=== PATIENT | female | born 1950 | race Two or more races ===

== ENCOUNTER → 2017-12-15 | Emergency (ER) | payer OTHER ==
[~2017-12-15] VITALS: Ht 165.1 cm; Wt 111.6 kg
[~2017-12-15] MED LIST: AMBIEN10 MG; ASA81 MG; AVALIDE 300-251 TAB; CLONAZEPAM1 MG; DICLOFENAC SODI50 MG PO; LIPITOR40 MG; LODINE300 MG; LOPRESSOR25 MG; NEURONTIN600 MG; NORFLEX100MG PO; PLAVIX75 MG; SEROQUEL25 MG; TUSSI PRES-B L120 M1 PO; VICODIN 5-3001 EACH; WELLBUTRIN XL300 MG; ZITHROMAX TRI-500 MG PO
== END | disposition home or self-care (01) ==
LOC: ER 15:27
DX: L20.9 Atopic dermatitis, unspecified (principal); R21 Rash and other nonspecific skin eruption

== ENCOUNTER 2018-10-11 12:10 | Emergency (ER) | payer OTHER ==
[~2018-10-11] VITALS: Ht 167.6 cm; Wt 115.2 kg
[2018-10-11] MEDS ORDERED: ALBUTEROL0.63 MG/3 IH (19:03)
== END 2018-10-11 19:08 | disposition home or self-care (01) ==
LOC: ER 12:10
DX: B34.9 Viral infection, unspecified (principal); J11.1 Influenza due to unidentified influenza virus with other respiratory manifestations

== ENCOUNTER 2019-08-18 11:07 | Emergency (ER) | payer OTHER ==
[~2019-08-18] VITALS: Ht 167.6 cm; Wt 115.2 kg
[~2019-08-18 11:07] MED LIST changes: +ALBUTEROL0.63 MG/3 IH
== END 2019-08-18 16:09 | disposition home or self-care (01) ==
LOC: ER 11:07
DX: J45.998 Other asthma (principal)

== ENCOUNTER 2019-09-06 15:49 | Emergency (ER) | payer OTHER ==
[~2019-09-06] VITALS: Ht 152.4 cm; Wt 131.5 kg
[2019-09-06] MEDS ORDERED: ZITHROMAX500 MG PO (17:33)
[2019-09-06] MEDS ORDERED: TUSNEL LIQUID178 ML PO (17:33)
== END 2019-09-06 17:42 | disposition home or self-care (01) ==
LOC: ER 15:49
DX: M94.0 Chondrocostal junction syndrome [Tietze] (principal)

== ENCOUNTER 2020-12-18 15:00 | Emergency (ER) | payer OTHER ==
[~2020-12-18] VITALS: Ht 167.6 cm; Wt 113.4 kg
[~2020-12-18 15:00] MED LIST changes: +TUSNEL LIQUID178 ML PO; +ZITHROMAX500 MG PO
[2020-12-18] MEDS ORDERED: TOPROL XL25 M1 (15:22)
[2020-12-18] MEDS ORDERED: ELIQUIS2.5 MG (15:22)
== END 2020-12-18 18:13 | disposition home or self-care (01) ==
LOC: ER 15:00
DX: G89.4 Chronic pain syndrome (principal); M54.5 Low back pain

== ENCOUNTER 2021-09-05 13:29 | Outpatient (CLI) | payer OTHER | END 2021-09-05 13:30 | disposition home or self-care (01) | LOC: LAB 13:29 | PROVIDERS: ATTEND Internal Medicine | DX: I82.402 Acute embolism and thrombosis of unspecified deep veins of left lower extremity (principal) ==

== ENCOUNTER → 2021-09-05 | Outpatient (CLI) | payer OTHER ==
[~2021-09-05] MED LIST changes: +ELIQUIS2.5 MG; +TOPROL XL25 M1
== END | disposition home or self-care (01) ==
LOC: PPH VACUNA 08:00
PROVIDERS: ATTEND Emergency Medicine Pediatric Emergency Medicine
DX: Z23 Encounter for immunization (principal)

== ENCOUNTER 2022-10-03 16:45 | Emergency (ER) | payer OTHER ==
[~2022-10-03] VITALS: Ht 167.6 cm; Wt 117.9 kg
[2022-10-03] MEDS ORDERED: IRBESARTAN-HCT1 EACH PO (17:48)
[2022-10-03] MEDS ORDERED: LEVOTHYROXINE75 MCG PO (17:48)
== END 2022-10-03 21:35 | disposition home or self-care (01) ==
LOC: ER 16:45
DX: M79.604 Pain in right leg (principal)

== ENCOUNTER 2023-03-11 16:49 | Emergency (ER) | payer OTHER ==
[~2023-03-11] VITALS: Ht 162.6 cm; Wt 72.6 kg
[~2023-03-11 16:49] MED LIST changes: +IRBESARTAN-HCT1 EACH PO; +LEVOTHYROXINE75 MCG PO
== END 2023-03-11 20:17 | disposition home or self-care (01) ==
LOC: ER 16:49
DX: U07.1 COVID-19 (principal); E11.9 Type 2 diabetes mellitus without complications; I10 Essential (primary) hypertension; E03.9 Hypothyroidism, unspecified

== ENCOUNTER 2023-09-08 14:19 | Emergency (ER) | payer OTHER ==
[~2023-09-08] VITALS: Ht 167.6 cm; Wt 112.0 kg
== END 2023-09-08 17:20 | disposition home or self-care (01) ==
LOC: ER 14:19
DX: S63.690A Other sprain of right index finger, initial encounter (principal); W18.39XA Other fall on same level, initial encounter; Y93.89 Activity, other specified; Y92.89 Other specified places as the place of occurrence of the external cause
CPT/HCPCS: 73130; 96372; 99284; J1885

== ENCOUNTER 2023-12-31 05:00 | Day surgery (SDC) | payer OTHER ==
[2023-12-23 10:16] LABS: HEMATOCRIT 39.7 % (36.0-45.00); HEMOGLOBIN 13.1 g/dL (12.0-15.00); MEAN CELL VOLUME 84.3 fL (80.00-100.00); MEAN CORPUSCULAR HEMOGLOBIN 27.9 pg (27.00-32.0); PLATELET COUNT 345 K/uL (150-450); RED BLOOD COUNT 4.71 M/uL (4.00-6.00); RED CELL DISTRIBUTION WIDTH 12.9 % (11.5-14.5)
[2023-12-23 10:19] LABS: URINE APPEARANCE Clear; URINE BILIRRUBIN Negative (NEGATIVE); URINE BLOOD Negative; URINE COLOR Yellow; URINE GLUCOSE Negative (NEGATIVE); URINE LEUKOCYTE Small; URINE NITRATE Negative; URINE PROTEIN Negative (NEGATIVE); URINE UROBILINOGEN 0.2 E.U./dl
[2023-12-23 10:23] LABS: URINE BACTERIA 81.8 uL (0.0-1933); URINE EPITHELIAL CELLS 20.2 uL (0.0-38.8); URINE RBC 9.6 uL (0.0-20.8); URINE WBC 31.6 uL (0.0-23.2)
[2023-12-23 10:44] LABS: INR 0.99; PARTIAL THROMBOPLASTIN TIME 27.6 SECONDS (22.0-34.0); PROTHROMBIN TIME 10.4 SECONDS (9.0-11.5)
[2023-12-23 10:55] LABS: ALBUMIN 3.9 gm/dL (3.4-5.0); BILIRUBIN TOTAL 0.4 mg/dL (0.3-1.2); CALCIUM 10.2 mg/dL (8.5-10.1); CREATININE SERUM 0.7 mg/dL (0.55-1.02); GFR 82.02; GLOBULINA 3.4 G/DL (2.4-3.5); POTASSIUM 4.56 mEq/L (3.5-5.1); TOTAL PROTEIN 7.3 gm/dL (6.4-8.2)
[~2023-12-31] VITALS: Ht 167.6 cm; Wt 115.2 kg
[2023-12-31] MEDS ORDERED: CEFAZOLIN SODIUM 1,000 MG VIAL ONE (06:19)
[2023-12-31] MEDS ORDERED: BUPIVACAINE HCL/PF 0.5% 30ML ML ONE (07:19)
[2023-12-31] MEDS ORDERED: BUPIVACAINE HCL 30 ML VIAL IJ ONE (09:00)
[2023-12-31] MEDS ORDERED: CEFAZOLIN SODIUM 1,000 MG VIAL IV ONE (09:00)
== END 2023-12-31 10:50 | disposition home or self-care (01) ==
LOC: CIR.AMB 05:00
PROVIDERS: ATTEND Orthopaedic Surgery Hand Surgery
DX: G56.01 Carpal tunnel syndrome, right upper limb (principal); Z20.822 Contact with and (suspected) exposure to COVID-19